=== PATIENT | male | born 1990 | race Asian ===

== ENCOUNTER → 2019-05-05 13:28 | Outpatient (CLI) | payer OTHER, SELFPAY ==
--- NOTE | 2019-05-05 | DI.MRI.S_ITS ---
PROCEDURE: MR LUMBAR SPINE WO CON INDICATIONS: Low back pain TECHNIQUE: Noncontrast sagittal T1 spin echo and T2 fast echo, sagittal STIR, axial T1 and T2 fast spin echo through the lumbar spine. In cases with scoliosis, additional coronal T2 fast spin echo may be performed. COMPARISON: None. FINDINGS: Image quality: Excellent. Alignment and Curvature: There is normal bony alignment. Bones: Marrow is of normal overall signal. No acute vertebral body compression fractures. Spinal Cord: Conus medullaris terminates at the L1 level. Visualized cord demonstrates normal signal and size. Paraspinous Soft Tissues: No paravertebral masses. L1-L2: Normal appearance. L2-L3: Normal appearance. L3-L4: Normal appearance. L4-L5: Loss of disc signal. Mild, diffuse disc bulge. No central stenosis. Mild bilateral neural foraminal narrowing. No neural compression. L5-S1: Loss of disc signal. Moderate to diffuse disc bulge. No central stenosis. Moderate bilateral neural foraminal narrowing. No neural compression. IMPRESSION: 1. L4-L5 and L5-S1 degenerative disc disease. 2. No central stenosis. 3. Moderate bilateral L5-S1 neural foraminal narrowing. Mild bilateral L4-L5 neural foraminal narrowing. 4. No neural compression. Dictated by: Yessi Rubio MD, PhD on 05/05/2019 at 14:15 Approved by: Yessi Rubio MD, PhD on 05/05/2019 at 14:19
== END ==
PROVIDERS: Visit Provider Preventive Medicine Public Health & General Preventive Medicine
DX: M54.5 Low back pain (principal); M51.36 Other intervertebral disc degeneration, lumbar region; M51.37 Other intervertebral disc degeneration, lumbosacral region; M48.061 Spinal stenosis, lumbar region without neurogenic claudication; M48.07 Spinal stenosis, lumbosacral region
CPT/HCPCS: 72148

== ENCOUNTER → 2020-12-18 15:36 | Outpatient (CLI) | payer OTHER, SELFPAY ==
--- NOTE | 2020-12-18 | DI.MRI.S_ITS ---
PROCEDURE: MR LUMBAR SPINE WO CON INDICATIONS: Other intervertebral disc displacement, lumbar reg TECHNIQUE: Noncontrast sagittal T1 spin echo and T2 fast echo, sagittal STIR, axial T1 and T2 fast spin echo through the lumbar spine. In cases with scoliosis, additional coronal T2 fast spin echo may be performed. COMPARISON: [facility], , MR LUMBAR SPINE WO CON, 05/05/2019, 13:34. FINDINGS: Image quality: Excellent. Alignment and Curvature: No plain films are available for comparison, for numbering purposes. Thus, for the purposes of this examination, 5 lumbar type vertebral bodies will be presumed, as denoted on the montage panel. This should be confirmed and correlated with plain films, prior to any lumbar spinal intervention. Loss of normal lumbar lordosis. Bone Marrow: Marrow is of normal overall signal. No acute vertebral body compression fractures. Mild reactive signal within the endplates adjacent to the L4-L5 and L5-S1 intervertebral discs. Spinal Cord: Conus medullaris terminates at the lower L1 level. Visualized cord demonstrates normal signal and size. Paraspinous Soft Tissues: No paravertebral masses. T12-L1: Normal appearance. L1-L2: Normal appearance. L2-L3: Normal appearance. L3-L4: Normal appearance. L4-L5: Mild disc height loss and desiccation. Mild diffuse disc bulge. Mild bilateral facet hypertrophy. Mild epidural lipomatosis. Mild canal stenosis. Mild to moderate subarticular foraminal stenosis bilaterally. No significant change. L5-S1: Moderate disc height loss and desiccation. Mild diffuse disc bulge with superimposed broad-based right paracentral and posterolateral protrusion. Mild bilateral facet hypertrophy. Mild canal stenosis. Moderate right greater than left foraminal stenosis bilaterally. No significant change. IMPRESSION: 1. Multilevel degenerative disc and facet disease, as well as ligamentum flavum hypertrophy and epidural lipomatosis. 2. Mild multilevel canal stenosis. 3. Multilevel foraminal stenoses, worst at L5-S1 where there are moderate foraminal stenoses. Dictated by: Jeronimo Wood M.D. on 12/18/2020 at 16:40 Approved by: Jeronimo Wood M.D. on 12/18/2020 at 16:42
== END ==
PROVIDERS: Referring Provider Physical Medicine & Rehabilitation; Visit Provider Physical Medicine & Rehabilitation
DX: M51.26 Other intervertebral disc displacement, lumbar region (principal); M51.36 Other intervertebral disc degeneration, lumbar region; M48.061 Spinal stenosis, lumbar region without neurogenic claudication; M48.07 Spinal stenosis, lumbosacral region; E88.2 Lipomatosis, not elsewhere classified
CPT/HCPCS: 72148

== ENCOUNTER 2021-07-15 18:21 | Emergency (ER) | payer OTHER, SELFPAY ==
[2021-07-15] VITALS (8 sets, daily range): BP systolic 116–145; BP diastolic 70–81; PULSE 74–91; RESP 19–22; TEMP 37; O2SAT 94–99; BMI 35.4
--- NOTE | 2021-07-15 18:34 | DI.RAD.S_ITS ---
PROCEDURE: XR ABDOMEN MIN 2V INDICATIONS: severe pain TECHNIQUE: 2 views of the abdomen were acquired. COMPARISON: None. FINDINGS: Surgical changes and devices: None. Bowel: No pneumoperitoneum. Nonspecific bowel gas pattern. Soft tissues: No masses; visualized solid organ contours appear normal in size. No suspicious abdominal calcifications. Bones: No suspicious bony abnormalities. IMPRESSION: Nonobstructive bowel gas pattern. Dictated by: Jordin Adams M.D. on 07/15/2021 at 19:42 Approved by: Jordin Adams M.D. on 07/15/2021 at 19:43
[2021-07-15 18:42] LABS: Add Manual Diff / Slide Review NO; Basophils Absolute Auto 100 /uL (0-100); Basophils Percent Auto 1.1 % (0-2); Eosinophils Absolute Auto 100 /uL (0-450); Hematocrit 46.1 % (41-53); Hemoglobin 15.9 g/dL (13.5-17.5); Lymphocytes Absolute Auto 3000 /uL (1100-4500); Lymphocytes Percent Auto 24.8 % (25-40); Mean Corpuscular HGB Conc 34.5 % (30-36); Mean Corpuscular Hemoglobin 28.9 PG (26-34); Mean Corpuscular Volume 83.7 fL (80-100); Monocytes Absolute Auto 1400 /uL (0-900); Monocytes Percent Auto 11.5 % (3-14); Neutrophils Absolute Auto 7300 /uL (1500-7000); Neutrophils Percent Auto 61.6 % (50-75); Platelet Count 284 X10^3/uL (150-400); Red Blood Cell Count 5.51 X10^6/uL (4.5-5.9); Red Cell Distribution Width 12.9 % (11.6-14.8); White Blood Cell Count 11.9 X10^3/uL (4.5-11.0)
--- NOTE | 2021-07-15 18:44 | ED_ITS ---
HPI - Abdominal Pain General Chief Complaint: Abdominal Pain Stated Complaint: bad abd pains Time Seen by Provider: 07/15/21 18:33 Source: patient Mode of arrival: Ambulatory History of Present Illness HPI narrative: 31-year-old male smoker without chronic medical problems presents with a chief complaint of severe left lower quadrant pain that has been present for the past day or 2. He states it came on rather suddenly and is 10/10. It is sharp and stabbing with occasional cramping. It is present all the time though does have some episodes which had intensifies without any obvious provocation. He does state that it seems to be worse when he moves and improves with rest. He has been passing gas but no bowel movements today. He has had no difficulty with urinating such as dysuria, frequency, urgency or hematuria. He denies any fever or chills. He is nauseated but denies any vomiting Related Data Previous Rx's Medication Instructions Recorded ciprofloxacin HCl 500 mg tablet 500 mg PO BID #20 tab 07/15/21 hydrocodone 5 mg-acetaminophen 325 1 tab PO Q4-6H PRN #10 tab 07/15/21 mg tablet metronidazole 500 mg tablet 500 mg PO Q8H 10 Days #30 tab 07/15/21 Allergies Allergy/AdvReac Type Severity Reaction Status Date / Time Penicillins Allergy Verified 07/15/21 18:34 Review of Systems Review of Systems Narrative: GENERAL: Denies chills, fatigue, malaise, fever, sweats. HEENT: Denies sinus pain, ear pain, sore throat, difficulty swallowing, dizziness. RESPIRATORY: Denies dyspnea, cough, wheezing, hemoptysis, sputum. CARDIOVASCULAR: Denies chest pain, palpitations, orthopnea, edema, GASTROINTESTINAL: See HPI : Denies dysuria, frequency, incontinence, hematuria, urinary retention. MUSCULOSKELETAL: denies weakness, joint pain, or bony pain SKIN: Denies rash, skin lesions, or other NEUROLOGIC: Denies weakness, headache, numbness, change in speech, confusion, seizures, incoordination. PSYCHIATRIC: No concerning psychosocial issues. 12 point review of systems is negative except for those stated above Patient History Social History Smoking Status: Current every day smoker Smoking Status: Current every day smoker Substance Use Type: does not use Exam Narrative Exam Narrative: GENERAL: [31 year old patient appears stated age. Well-developed patient, in obvious pain, walking in slightly hunched over, rubbing his lower abdomen HEAD: Atraumatic. Normocephalic. EYES: Pupils equal round and reactive. Extraocular motions intact. No scleral icterus. No injection or drainage. ENT: Nose without bleeding, purulent drainage. Throat without erythema, tonsillar hypertrophy or exudate. Airway patent. NECK: Trachea midline. Non tender CARDIOVASCULAR: Regular rate and rhythm without murmurs, gallops, or rubs. RESPIRATORY: Clear to auscultation. Breath sounds equal bilaterally. No wheezes, rales, or rhonchi. GASTROINTESTINAL: Abdomen soft, severe tenderness with guarding in the left lower quadrant, bowel sounds present but decreased nondistended. EXTREMITIES: No edema or joint tenderness. BACK: Nontender without deformity or crepitance. No flank tenderness. NEURO: AOx3. SKIN: No rash or erythema of visible areas Initial Vital Signs Initial Vital Signs: Vital Signs Temperature 98.6 F 07/15/21 18:46 Pulse Rate 74 07/15/21 18:46 Respiratory Rate 22 07/15/21 18:46 Blood Pressure 145/75 H 07/15/21 18:46 Pulse Oximetry 95 07/15/21 18:46 Course Orders Ordered: ED Orders 07/15/21 19:45 CT abdomen pelvis w con Stat 07/15/21 20:35 Urine Culture Stat Urine Microscopic Stat Discontinued Medications Hydrocodone Bitart/Acetaminophen (Hydrocodone/Acet 5/325 Prepack) 1 bottle MISC SEEINSTR ONE Stop: 07/15/21 20:43 Last Admin: 07/15/21 20:53 Dose: 1 bottle Documented by: GANGA Sodium Chloride (Normal Saline 0.9%) 1,000 mls @ 1,000 mls/hr IV BOLUS ONE Stop: 07/15/21 19:32 Last Infusion: 07/15/21 20:35 Dose: 0 mls/hr Documented by: Admin: 07/15/21 19:07 Dose: 1,000 mls/hr Documented by: GANGA Ketorolac Tromethamine (Ketorolac 30 Mg/Ml Vial) 15 mg IV NOW ONE Stop: 07/15/21 18:34 Last Admin: 07/15/21 19:08 Dose: 15 mg Documented by: GANGA Levofloxacin (Levofloxacin 250 Mg Tablet) 500 mg PO NOW ONE Stop: 07/15/21 20:43 Last Admin: 07/15/21 20:53 Dose: 500 mg Documented by: GANGA Ondansetron HCl (Ondansetron 4 Mg/2 Ml Inj) 4 mg IV NOW ONE Stop: 07/15/21 18:34 Last Admin: 07/15/21 19:08 Dose: 4 mg Documented by: GANGA Ondansetron HCl (Ondansetron 4 Mg Odt Prepack) 1 bottle MISC SEEINSTR ONE Stop: 07/15/21 20:43 Last Admin: 07/15/21 20:53 Dose: 1 bottle Documented by: GANGA Vital Signs Vital signs: Vital Signs - 8 hr 07/15/21 20:55 07/15/21 20:56 Pulse Rate 75 80 Blood Pressure 126/81 Pulse Oximetry 97 96 MDM - Abdominal Pain Lab Data Result diagrams: 07/15/21 18:35 07/15/21 18:35 Labs: Lab Results 07/15/21 07/15/21 07/15/21 Range/Units 18:35 18:35 18:35 WBC 11.9 H (4.5-11.0) X10^3/uL RBC 5.51 (4.5-5.9) X10^6/uL Hgb 15.9 (13.5-17.5) g/dL Hct 46.1 (41-53) % MCV 83.7 (80-100) fL MCH 28.9 (26-34) PG MCHC 34.5 (30-36) % RDW 12.9 (11.6-14.8) % Plt Count 284 (150-400) X10^3/uL Neut % (Auto) 61.6 (50-75) % Lymph % (Auto) 24.8 L (25-40) % [place] % (Auto) 11.5 (3-14) % Eos % (Auto) 1.0 L (2-4) % Baso % (Auto) 1.1 (0-2) % Neut # (Auto) 7300 H (7891-6430) /uL Lymph # (Auto) 3000 (9112-9324) /uL [place] # (Auto) 1400 H (0-900) /uL Eos # (Auto) 100 (0-450) /uL Baso # (Auto) 100 (0-100) /uL Sodium 141 (137-145) mmol/L Potassium 4.1 (3.4-5.1) mmol/L Chloride 105 (98-107) mmol/L Carbon Dioxide 26 (22-32) mmol/L BUN 13 (9-20) mg/dL Creatinine 1.08 (0.66-1.25) mg/dL Estimated GFR > 60.0 (>60) mL/min BUN/Creatinine Ratio 12.0 (6-22) Glucose 101 H (70-100) mg/dL Calcium 9.3 (8.4-10.2) mg/dL Total Bilirubin 0.8 (0.2-1.3) mg/dL AST 62 H (17-59) IU/L ALT 106 H (<50) IU/L Alkaline Phosphatase 73 (38-126) U/L Total Protein 8.4 H (6.3-8.2) g/dL Albumin 4.7 (3.5-5.0) g/dL Globulin 3.7 (1.7-4.1) g/dL Albumin/Globulin Ratio 1.3 (1.0-2.8) Lipase 111 (23-300) U/L Urine RBC (0-5/HPF) Urine WBC (0-5/HPF) Calcium Oxalate Crystal Urine Bacteria (None) Urine Mucus (Negative) Ur Culture Indicated? SARS-CoV-2 (PCR) Negative (Negative) 07/15/21 Range/Units 20:35 WBC (4.5-11.0) X10^3/uL RBC (4.5-5.9) X10^6/uL Hgb (13.5-17.5) g/dL Hct (41-53) % MCV (80-100) fL MCH (26-34) PG MCHC (30-36) % RDW (11.6-14.8) % Plt Count (150-400) X10^3/uL Neut % (Auto) (50-75) % Lymph % (Auto) (25-40) % [place] % (Auto) (3-14) % Eos % (Auto) (2-4) % Baso % (Auto) (0-2) % Neut # (Auto) (3586-2070) /uL Lymph # (Auto) (3813-9942) /uL [place] # (Auto) (0-900) /uL Eos # (Auto) (0-450) /uL Baso # (Auto) (0-100) /uL Sodium (137-145) mmol/L Potassium (3.4-5.1) mmol/L Chloride (98-107) mmol/L Carbon Dioxide (22-32) mmol/L BUN (9-20) mg/dL Creatinine (0.66-1.25) mg/dL Estimated GFR (>60) mL/min BUN/Creatinine Ratio (6-22) Glucose (70-100) mg/dL Calcium (8.4-10.2) mg/dL Total Bilirubin (0.2-1.3) mg/dL AST (17-59) IU/L ALT (<50) IU/L Alkaline Phosphatase (38-126) U/L Total Protein (6.3-8.2) g/dL Albumin (3.5-5.0) g/dL Globulin (1.7-4.1) g/dL Albumin/Globulin Ratio (1.0-2.8) Lipase (23-300) U/L Urine RBC None seen (0-5/HPF) Urine WBC None seen (0-5/HPF) Calcium Oxalate Crystal Many H Urine Bacteria None seen (None) Urine Mucus 1+ H (Negative) Ur Culture Indicated? Cult not indicated SARS-CoV-2 (PCR) (Negative) Point of care testing: Urine Dip Bedside Urine Glucose Negative Bedside Urine Bilirubin - Negative Bedside Urine Ketone +/- 5 Urine Specific [place] 1.020 Bedside Urine Occult Blood - Negative Bedside Urine pH 6.0 Bedside Urine Protein + 30 Bedside Urine Urobilinogen - Negative Bedside Urine Nitrite - Negative Bedside Urine Leukocytes - Negative Esterase Imaging Data CT scan - abdomen/pelvis: Radiologist's Impression: [address] [address] [address] Scan Report Signed Patient: MANISHA ALVES MR#: [id number] : 1990 Acct:[id number] Age/Sex: 31 / M Date of Service: 07/15/21 Loc: ED Accession Number: [id number] ?? Procedure: CT abdomen pelvis w con Ordering Provider: Rd Holland D.O. PROCEDURE:? CT ABDOMEN PELVIS W CON ? INDICATIONS:? severe LLQ pain ? TECHNIQUE:? After the administration of intravenous contrast, axial sections acquired from the lung bases to the pubic symphysis.? Coronal and sagittal reformats were performed.? For radiation dose reduction, the following was used:? automated exposure control, adjustment of mA and/or kV according to patient size.? ? COMPARISON:? None. ? FINDINGS:? Image quality:? Excellent.? ? Lung bases:? Unremarkable. Heart:? No significant findings. ? ABDOMEN: Liver:? Moderate hepatic steatosis is seen, no discrete hepatic lesion is noted. Gallbladder:? Gallbladder is within normal limits. Biliary ducts:? Unremarkable.? ? Pancreas:? Unremarkable.? ? Spleen:? Unremarkable.? ? Adrenal Glands:? Unremarkable.? ? Kidneys and Ureters:? Unremarkable.? ? ? Stomach and Bowel:? There is no bowel obstruction.? No stomach or small bowel wall thickening.? Significant wall thickening involving distal descending colon in left lower quadrant with adjacent pericolonic fat stranding and narrowing of the lumen best seen on coronal image 26 and axial image 68. No adjacent drainable abscess collection is seen. Peritoneum:? No abnormal intraperitoneal fluid.? No free air.? ? Ventral Wall: ? No hernias.? Abdominal Nodes:? No retroperitoneal or mesenteric adenopathy by size criteria.? Vessels:? Aorta and inferior vena cava are normal in size.? ? PELVIS: Pelvic Organs:? Unremarkable.? ? Bladder:? Unremarkable.? ? Pelvic Nodes: No enlarged lymph nodes.? Miscellaneous: No hernias are seen. ? ? ? Bones:? No suspicious bony lesion.? No vertebral body compression fracture.? Degenerative endplate changes are noted at L4-5 and L5-S1 levels. ? ? IMPRESSION:? 1.? Focal short segment of wall thickening and pericolonic fat stranding involving distal descending colon with narrowing of the lumen.? Finding is suggestive of focal area of infectious or inflammatory colitis versus diverticulitis.? No abscess collection .? No other area of abnormal bowel wall thickening.? No free fluid or free air. 2. Moderate hepatic steatosis. 3.? Degenerative disc disease at L4-5 and L5-S1 levels.? No acute vertebral body compression fracture. ? ? Dictated by: Montrell Forbes M.D. on 07/15/2021 at 20:33 ? ? Approved by: Montrell Forbes M.D. on 07/15/2021 at 20:36 ? MDM Narrative Medical decision making narrative: Patient with lower abdominal pain, reassuring history, physical, labs and vitals. Imaging suggests likely diverticulitis, no abscess or perforation note d. Pain is well controlled, patient tolerating orals. Return precautions discussed in questions have been answered to his apparent satisfaction Discharge Plan Departure Patient Disposition: Home Clinical Impression: Diverticulitis Instructions: DI for Diverticulitis Activity Restrictions/Additional Instructions: *You have been diagnosed with [abdominal pain likely due to early diverticuliti s. There is no abscess, evidence of bowel obstruction, kidney stone or other source of your pain. *What to do: *Please continue to take your regular medications as directed. [x ] New medication prescriptions sent to your pharmacy: [[facility] ] [ ] New medication written as a paper prescription [ ] No new medications given *Please follow up with your primary care provider in 2-3 days, call for an appointment. Let them know you were seen in the Emergency Department and that we ask that you be seen in follow up. We will electronically transmit a record of today's note if your PCP is in our system *If you do not have a primary care provider please contact the [facility] Resource line at [phone]. They will ask some questions about your medical history and help get you set up with a doctor in the community. *Return to Emergency Department if you should have any new, worsening or concerning symptoms, such as [fever greater than 101 F, shaking chills, worsening pain, persistent vomiting or other bothersome symptoms] Prescriptions: New ciprofloxacin HCl 500 mg tablet 500 mg PO BID Qty: 20 0RF metronidazole 500 mg tablet 500 mg PO Q8H 10 Days Qty: 30 0RF hydrocodone-acetaminophen 5-325 mg tablet 1 tab PO Q4-6H PRN (Reason: pain) Qty: 10 0RF Referrals: [facility] [Outside]
[2021-07-15 18:56] LABS: Alanine Aminotransferase 106 IU/L (<50); Albumin 4.7 g/dL (3.5-5.0); Albumin Globulin Ratio 1.3 (1.0-2.8); Alkaline Phosphatase 73 U/L (38-126); Aspartate Aminotransferase 62 IU/L (17-59); Bilirubin Total 0.8 mg/dL (0.2-1.3); Blood Urea Nitrogen 13 mg/dL (9-20); Calcium 9.3 mg/dL (8.4-10.2); Carbon Dioxide 26 mmol/L (22-32); Chloride 105 mmol/L (98-107); Estimated Glomerular Filt Rate > 60.0 mL/min (>60); Globulin 3.7 g/dL (1.7-4.1); Glucose 101 mg/dL (70-100); HEMOLYSIS 18 (0-50); Lipase 111 U/L (23-300); Potassium 4.1 mmol/L (3.4-5.1); Sodium 141 mmol/L (137-145); Total Protein 8.4 g/dL (6.3-8.2)
[2021-07-15] MEDS: SODIUM CHLORIDE 0.9% 1,000 ML 1000 ML IV (19:07)
[2021-07-15] MEDS: ONDANSETRON 4 MG/2 ML INJ IV (19:08)
[2021-07-15] MEDS: KETOROLAC 30 MG/ML VIAL 15 MG IV (19:08)
[2021-07-15 19:13] LABS: COVID19 -Nasal RAPID Negative (Negative)
--- NOTE | 2021-07-15 19:45 | DI.CT.S_ITS ---
PROCEDURE: CT ABDOMEN PELVIS W CON INDICATIONS: severe LLQ pain TECHNIQUE: After the administration of intravenous contrast, axial sections acquired from the lung bases to the pubic symphysis. Coronal and sagittal reformats were performed. For radiation dose reduction, the following was used: automated exposure control, adjustment of mA and/or kV according to patient size. COMPARISON: None. FINDINGS: Image quality: Excellent. Lung bases: Unremarkable. Heart: No significant findings. ABDOMEN: Liver: Moderate hepatic steatosis is seen, no discrete hepatic lesion is noted. Gallbladder: Gallbladder is within normal limits. Biliary ducts: Unremarkable. Pancreas: Unremarkable. Spleen: Unremarkable. Adrenal Glands: Unremarkable. Kidneys and Ureters: Unremarkable. Stomach and Bowel: There is no bowel obstruction. No stomach or small bowel wall thickening. Significant wall thickening involving distal descending colon in left lower quadrant with adjacent pericolonic fat stranding and narrowing of the lumen best seen on coronal image 26 and axial image 68. No adjacent drainable abscess collection is seen. Peritoneum: No abnormal intraperitoneal fluid. No free air. Ventral Wall: No hernias. Abdominal Nodes: No retroperitoneal or mesenteric adenopathy by size criteria. Vessels: Aorta and inferior vena cava are normal in size. PELVIS: Pelvic Organs: Unremarkable. Bladder: Unremarkable. Pelvic Nodes: No enlarged lymph nodes. Miscellaneous: No hernias are seen. Bones: No suspicious bony lesion. No vertebral body compression fracture. Degenerative endplate changes are noted at L4-5 and L5-S1 levels. IMPRESSION: 1. Focal short segment of wall thickening and pericolonic fat stranding involving distal descending colon with narrowing of the lumen. Finding is suggestive of focal area of infectious or inflammatory colitis versus diverticulitis. No abscess collection. No other area of abnormal bowel wall thickening. No free fluid or free air. 2. Moderate hepatic steatosis. 3. Degenerative disc disease at L4-5 and L5-S1 levels. No acute vertebral body compression fracture. Dictated by: Montrell Forbes M.D. on 07/15/2021 at 20:33 Approved by: Montrell Forbes M.D. on 07/15/2021 at 20:36
[2021-07-15] MEDS: ONDANSETRON 4 MG ODT PREPACK 1 BOTTLE MISC (20:53)
[2021-07-15] MEDS: HYDROCODONE/ACET 5/325 PREPACK 1 BOTTLE MISC (20:53)
[2021-07-15] MEDS: levoFLOXacin 250 MG TABLET 500 MG PO (20:53)
[2021-07-15 21:44] LABS: Bacteria Urine None Seen; Calcium Oxalate Crystals Urine Many; Culture Indicated Urine Cult Not Indicated; Mucus Urine 1+ (Negative); RBC Urine None Seen (0-5/HPF); WBC Urine None Seen (0-5/HPF)
== END 2021-07-15 21:06 | disposition home or self-care (01) ==
PROVIDERS: Emergency Provider Emergency Medicine
DX: K57.32 Diverticulitis of large intestine without perforation or abscess without bleeding (principal); F17.200 Nicotine dependence, unspecified, uncomplicated; Z88.0 Allergy status to penicillin; Z20.822 Contact with and (suspected) exposure to COVID-19
CPT/HCPCS: 36415; 74019; 74177; 80053; 81003; 81015; 83690; 85025; 87086; 87635; 96361; 96374; 96375; 99284; C9803; J1885; J2405; Q9967

== ENCOUNTER → 2021-12-07 13:19 | Outpatient (CLI) | payer OTHER, SELFPAY ==
[2021-12-07 14:46] LABS: COVID19 -Nasal RAPID Negative (Negative)
== END ==
PROVIDERS: Visit Provider Surgery
DX: Z01.812 Encounter for preprocedural laboratory examination (principal); Z20.822 Contact with and (suspected) exposure to COVID-19
CPT/HCPCS: 87635; C9803

== ENCOUNTER 2021-12-10 12:55 | Day surgery (SDC) | payer OTHER, SELFPAY ==
[2021-12-10] VITALS (8 sets, daily range): BP systolic 97–132; BP diastolic 57–84; PULSE 63–85; RESP 9–19; TEMP 36.2–36.6; O2SAT 94–100; BMI 35.4
--- NOTE | 2021-12-10 | PATH_ITS ---
[facility] Accession Number: [id number] . 01 Material submitted: . colon - RECTAL/SIGMOID COLON POLYP . 01 Diagnosis: Rectosigmoid Colon, Polyp, Biopsy: Tubular adenoma. V 12/12/2021 1337 Local . 01 Electronically signed: . Darlin Michel MD, Pathologist NPI- [id number] . 01 Gross description: . RECTAL/SIGMOID COLON POLYP: Received in formalin is 1 fragment(s) of walters, soft tissue measuring 0.2 x 0.2 x 0.2 cm submitted entirely in 1 cassette(s) /QBJ 12/11/2021 0745 Local . 01 Pathologist provided ICD-10: D12.7 . 01 CPT . 011880 Specimen Comment: A courtesy copy of this report has been sent to [phone] Performed at: 01 [facility] [address] [place] [address], [place], [place] [id number] MD Edmond Baptiste MD Phone: [phone]
[2021-12-10] MEDS: SODIUM CHLORIDE 0.9% 1,000 ML 84 ML IV (13:25)
--- NOTE | 2021-12-10 13:31 | PM.HP.1 ---
History of Present Illness History of Present Illness Date Patient Seen: 12/10/21 Time Patient Seen: 13:31 Chief complaint: SDC Narrative: I reviewed my recent office note from October 30. No significant changes. Patient History Medical History Hemorrhoids Family & Social History Social History: household members spouse Tobacco & Substance use: Smoking Status Current every day smoker alcohol intake never Substance Use Type does not use Meds Home Medications and Allergies Home Medications Medication Instructions Recorded Confirmed Type dupilumab 300 mg/2 mL subcutaneous 2 ml SUBCUT Q2W 12/10/21 12/10/21 History syringe (Dupixent) Allergies Allergy/AdvReac Type Severity Reaction Status Date / Time Penicillins Allergy Unknown Verified 12/10/21 13:15 Review of Systems Review of Systems ROS: Yes All systems reviewed with the patient and are negative except as otherwise documented Exam Vital Signs (past 8 hours): - 12/10/21 13:20 Temperature 97.4 F L Pulse Rate 82 Respiratory Rate 16 Blood Pressure 131/84 Pulse Oximetry 97 Oxygen Delivery Method Room Air Oxygen Delivery Method Room Air Const General: cooperative HENMT Head: normal to inspection Eyes General: appearance normal, both eyes and all related structures Neck Neck: normal visual inspection Chest Chest: normal inspection of the chest Resp Effort & Inspection: normal respiratory effort Cardio Rhythm: regular rhythm GI Inspection: normal to inspection Skin General: no rashes or lesions noted Neuro General: patient alert and patient awake Extrem General: normal to inspection and no pedal edema Assessment & Plan Assessment & Plan narrative: 31-year-old male with a history of diverticulitis. Colonoscopy is pursued today to exclude a neoplastic source for his recent diverticulitis. Time Spent With Patient Critical Care time: I spent a total of [] minutes of critical care time on this patient's care today; this time is exclusive of procedural time.
--- NOTE | 2021-12-10 13:33 | PM.PREOP ---
Pre-operative Note COVID-19 COVID-19 status: Negative Result date/Date tested (Pos, Neg/Pending): 12/07/21 Criteria for continued procedure: Possibility delay results in more complex future surgery or treatment Interval Note History & Physical reviewed/Exam performed by Physician: Yes Changes to H&P: No ASA Class (for procedural sedation): II
--- NOTE | 2021-12-10 14:03 | PM.OP.COLON ---
Operative Date/Time/Diagnoses Date of procedure: 12/10/21 Time of procedure: 14:04 Pre-op diagnosis: History of diverticulitis earlier this year Post-op diagnosis: same Procedure & Clinicians Study performed: Colonoscopy with cold forceps polypectomy Same procedure as scheduled: Yes Indications: History of diverticulitis earlier this year Surgeon: Felton Villegas Procedure Notes SCOAP/Timeout: Done Procedure in detail: After the risks and benefits were explained, written and verbal informed consent was obtained. The patient was brought into the procedure room and placed into the left lateral decubitus position. Please see nurse summer law associate notes for sedation details. Digital rectal examination was accomplished. The scope was introduced into the patient and advanced under direct visualization to the cecum as identified by the appendiceal orifice and ileocecal valve. The scope was slowly withdrawn to carefully examine the mucosa for any defects or lesions. Comprehensive imaging was accomplished throughout the rectum including the dentate line. The colon was decompressed, the scope was then removed from the patient who tolerated the procedure well. Adult colonoscope Bowel prep adequate Scope withdrawal time: 9 minutes Sedation minutes: 23 Complications: none Impression: There was a diminutive polyp in the rectosigmoid region removed with cold forceps. The patient had grade 1 to grade 2 internal nonbleeding nonthrombosed hemorrhoids. No evidence of proctitis no evidence of colitis. I did not appreciate any evidence of diverticulosis throughout the colon. Endoscopic diagnosis 1. Diminutive colon polyp 2. Grade 1 to grade 2 internal hemorrhoids Post-procedure Plan for aftercare: 1. Await histopathology. 2. If this polyp is hyperplastic, colon cancer screening should be considered at age 45. Disposition: PACU
== END 2021-12-10 14:40 | disposition home or self-care (01) ==
PROVIDERS: PCP Family Medicine; Referring Provider Internal Medicine Gastroenterology; Visit Provider Internal Medicine Gastroenterology
PROC: 0DJD8ZZ Inspection of Lower Intestinal Tract, Via Natural or Artificial Opening Endoscopic (ICD-10-PCS; CPT 45378; principal; 2021-12-10 14:00)
DX: Z87.19 Personal history of other diseases of the digestive system (principal); K64.1 Second degree hemorrhoids; D12.7 Benign neoplasm of rectosigmoid junction
CPT/HCPCS: 45380; J2704